=== PATIENT | male | born 1985 | race Caucasian/White ===

== ENCOUNTER 2017-02-03 03:58 | Emergency (ER) | payer OTHER, MEDICAID ==
--- NOTE | 2017-02-03 04:34 | ED Physician Chart ---
Chief Complaint/HPI - Patient Information Date Seen:: 02/03/17 Time Seen:: 04:00 Chief Complaint:: throat pain History of Present Illness:: 32-year-old male, otherwise healthy, complains of acute, worsening, constant, aching, 10 out of 10, nonradiating, burning, worse with swallowing, throat pain 5 days. Has associated muffled voice. Took some Motrin which helped the pain. Allergies:: Allergies Allergy/AdvReac Type Severity Reaction Status Date / Time No Known Allergies Allergy Verified 02/03/17 04:20 Review of Systems - Review of Systems Other: Complete system review otherwise unremarkable except as noted in history of present illness. Past Medical History - Past Medical History Past Medical History: No significant medical hx Family History: None Social History: Non Smoker, No Alcohol, No Drug Use, Employed Surgical History: None Psychiatricy History: None Medication: None Family Medical History - Family Member Mother Ethnicity: Living Status: Still Living Hx Family Cancer: No Hx Family Coronary Artery Disease: No Hx Family Congestive Heart Failure: No Hx Family Hypertension: No Physical Exam - Physical Examination Other:: INITIAL VITAL SIGNS: Reviewed by me GENERAL: Alert and interactive. No acute distress HEAD: Head is normocephalic and atraumatic EYES: EOMI. PERRL. No scleral icterus. No conjunctival injection ENT: Tonsils are +2 edematous with exudate. NECK: Supple. Bilateral cervical adenopathy greater on the right than left. Full range of motion RESPIRATORY: No tachypnea. Clear breath sounds bilaterally. No wheezing, rales, or rhonchi CV: Regular rate and rhythm. No murmurs, rubs, or gallops ABDOMEN: Soft, non-distended, non-tender. No guarding. No rebound. No masses. EXTREMITIES: No deformity. No cyanosis. No edema. SKIN: Warm and dry. No obvious rashes. NEUROLOGIC: Alert and oriented. Face is symmetric. Speech is normal. Moves all extremities equally. Motor and sensory distally intact. ED Septic Shock - . Is Septic Shock (SBP<90, OR Lactate>4 mmol\L) present?: No Reassessment (Disposition) - Reassessment Reassessment:: Blood pressure was noted to be elevated over 120/80. There were no signs of hypertension. Discussed the findings with the patient and recommended that the patient follow up with the primary care physician regarding the elevated blood pressure. Patient has acute throat pain due to tonsillitis. Treated definitively here in the ER. Gave Bicillin, Toradol, Decadron IM. Follow-up PCP 1-2 days. Gave prescription for ibuprofen. Return to ER precautions given. Patient understands and agrees with the plan. Reassessment Condition:: Improved - Diagnosis Diagnosis:: Acute throat pain due acute tonsillitis Elevated blood pressure without the diagnosis of hypertension - Aftercare/Follow up Instructions Aftercare/Follow-Up Instructions:: Counseled pt regarding lab results/diagnosis & need follow up, Refer to Discharge Instructions Medication Prescribed:: Ibuprofen - Patient Disposition Discharge/Transfer:: Home Time:: 04:44 Condition at Disposition:: Improved ED Discharge Plan - Patient Disposition Admit/Discharge/Transfer: Acute Care w/in this hosp Condition at Disposition: Improved Instructions: Tonsillitis, [id number] Forms: Work Release Form
[2017-02-03] MEDS ORDERED: Dexamethasone Sodium Phos 10 mg/mL PF Vial ONE (04:40)
[2017-02-03] MEDS: Dexamethasone Sodium Phos 4 mg/mL Vial IM STA (04:45)
== END 2017-02-03 05:00 | disposition home or self-care (01) ==
LOC: ER 03:58
DX: J03.90 Acute tonsillitis, unspecified (principal); R03.0 Elevated blood-pressure reading, without diagnosis of hypertension
CPT/HCPCS: J0561; J1885; Z7502

== ENCOUNTER 2017-03-04 16:27 | Inpatient (IN) | payer OTHER, MEDICAID ==
--- NOTE | 2017-03-04 16:48 | ED Physician Chart ---
Chief Complaint/HPI - Patient Information Date Seen:: 03/04/17 Time Seen:: 16:37 Chief Complaint:: FEVER History of Present Illness:: THIS IS A 32 YO MALE WHO STATES THAT OVER THE LAST TWO DAYS HE HAS GOTTEN SICK WITH FEVER. HE DENIES A SORE THROAT BUT HAS SOME CHEST CONGESTION. HE DENIES PAINFUL URINATION AND STATES THAT HE HAD SOME ABDOMINAL PAIN BUT STOPPED TODAY. Allergies:: Allergies Allergy/AdvReac Type Severity Reaction Status Date / Time No Known Allergies Allergy Verified 02/03/17 04:20 Vitals:: Vital Signs - 8 hr 03/04/17 16:34 Temp 103.0 F HR 131 RR 23 BP 117/70 O2 Sat % 96 Historian:: Patient Review:: Nurse's Note Reviewed Review of Systems - Review of Systems General/Constitutional: Fever, No chills, No weight loss, No weakness, No diaphoresis, No edema, No loss of appetite Skin: No skin lesions, No rash, No bruising Head: No headache, No light-headedness Eyes: No loss of vision, No pain, No diplopia ENT: No earache, No nasal drainage, Sore throat, No tinnitus Neck: No neck pain, No swelling, No thyromegaly, No stiffness, No mass noted Cardio Vascular: No chest pain, No palpitations, No PND, No orthopnea, No edema Pulmonary: No SOB, No cough, No sputum, No wheezing GI: No nausea, No vomiting, No diarrhea, Pain, No melena, No hematochezia, No constipation, No hematemesis G/U: No dysuria, No frequency, No hematuria Musculoskeletal: No bone or joint pain, No back pain, No muscle pain Endocrine: No polyuria, No polydipsia Psychiatric: No prior psych history, No depression, No anxiety, No suicidal ideation Hematopoietic: No bruising, No lymphadenopathy Allergic/Immuno: No urticaria, No angioedema Neurological: No syncope, No focal symptoms, No weakness, No paresthesia, No headache, No seizure, No dizziness, No confusion, No vertigo Past Medical History - Past Medical History Past Medical History: No significant medical hx Family History: None Social History: Non Smoker, No Alcohol, No Drug Use Surgical History: None Psychiatricy History: None Medication: Reviewed Family Medical History - Family Member Mother History Unknown: Yes Ethnicity: Living Status: Still Living Hx Family Cancer: No Hx Family Coronary Artery Disease: No Hx Family Congestive Heart Failure: No Hx Family Hypertension: No Physical Exam - Physical Examination General/Constitutional: Awake, Well-developed, well-nourished, Alert, No distress, GCS 15, Non-toxic appearing, Ambulatory Head: Atraumatic Eyes: Lids, conjuctiva normal, PERRL, EOMI Skin: Nl inspection, No rash, No skin lesions, No ecchymosis, Well hydrated, No lymphadenopathy ENMT: External ears, nose nl, Nasal exam nl, Lips, teeth, gums nl Neck: Nontender, Full ROM w/o pain, No JVD, No nuchal rigidity, No bruit, No mass, No stridor Respiratory: Nl effort/Exclusion, Clear to Auscultation, No Wheeze/Rhonchi/Rales Cardio Vascular: RRR, No murmur, gallop, rubs, NL S1 S2 GI: No tenderness/rebounding/guarding, No organomegaly, No hernia, Normal BS's, Nondistended, No mass/bruits, No McBurney tenderness : No CVA tenderness Extremities: No tenderness or effusion, Full ROM, normal strength in all extremities, No edema, Normal digits & nails Neuro/Psych: Alert/oriented, DTR's symmetric, Normal sensory exam, Normal motor strength, Judgement/insight normal, Mood normal, Normal gait, No focal deficits Misc: normal gait, Normal back, No paraspinal tenderness Labs/Radiology/EKG Results - Lab Results Results: Abnormal Lab Results 03/04/17 03/04/17 03/04/17 16:40 16:40 16:40 WBC 20.8 H* RBC 5.11 Hgb 15.3 Hct 44.5 MCV 87.0 MCH 30.0 MCHC Differential 34.5 RDW 12.4 Plt Count 105 L MPV 10.1 Band Neutrophils % 4 Neutrophils (Manual) 85 H Lymphocytes 8 L Monocytes 3 Platelet Estimate DECREASED PLATELETS Platelet Morphology NORMAL RBC Morph Micro Appear NORMAL PT 11.9 H INR 1.13 Sodium Potassium Chloride Carbon Dioxide Anion Gap BUN Creatinine Est GFR ( Amer) Est GFR (Non-Af Amer) BUN/Creatinine Ratio Glucose Calcium Total Bilirubin AST ALT Alkaline Phosphatase Troponin I Total Protein Albumin Globulin Albumin/Globulin Ratio Triglycerides 78 Cholesterol 133 LDL Cholesterol Direct 82 HDL Cholesterol 38 Urine Source Urine Color Urine Clarity Urine pH Ur Specific [place] Urine Protein Urine Glucose (UA) Urine Ketones Urine Blood Urine Nitrate Urine Bilirubin Urine Urobilinogen Ur Leukocyte Esterase Urine RBC Urine WBC Ur Epithelial Cells Urine Bacteria 03/04/17 03/04/17 03/04/17 16:40 16:40 17:00 WBC RBC Hgb Hct MCV MCH MCHC Differential RDW Plt Count MPV Band Neutrophils % Neutrophils (Manual) Lymphocytes Monocytes Platelet Estimate Platelet Morphology RBC Morph Micro Appear PT INR Sodium 132 L Potassium 3.3 L Chloride 100 Carbon Dioxide 26.1 Anion Gap 9.2 BUN 13 Creatinine 1.1 Est GFR ( Amer) > 60.0 Est GFR (Non-Af Amer) > 60.0 BUN/Creatinine Ratio 11.8 Glucose 114 H Calcium 9.3 Total Bilirubin 1.3 H AST 12 L ALT 17 Alkaline Phosphatase 90 Troponin I < 0.01 L Total Protein 7.4 Albumin 4.2 Globulin 3.2 Albumin/Globulin Ratio 1.3 Triglycerides Cholesterol LDL Cholesterol Direct HDL Cholesterol Urine Source CLEAN C Urine Color DARK YELLOW Urine Clarity SLIGHT HAZY Urine pH 6.0 Ur Specific [place] 1.010 Urine Protein 100 H Urine Glucose (UA) NEGATIVE Urine Ketones 15 H Urine Blood MODERATE H Urine Nitrate NEGATIVE Urine Bilirubin NEGATIVE Urine Urobilinogen 4.0 H Ur Leukocyte Esterase SMALL H Urine RBC 10-25 H Urine WBC 25-50 H Ur Epithelial Cells FEW Urine Bacteria 1+ H - Radiology Results Results: chest x-ray = cm Assessment - Assessment General Assessment: THE PATIENT RESPONSE TO THE TYLENOL WAS GOOD AND THE TEMP CAME DOWN. THE LAB RESULTS ALL POINTS TO PYELONEPHRITIS. THE PATIENT WAS CULTURED AND TREATED WITH FLUIDS, ANTIBIOTICS WITH THE URINE SENT TO BE CULTURED. ED Septic Shock - . Is Septic Shock (SBP<90, OR Lactate>4 mmol\L) present?: No - <6hrs of presentation: Vital Signs: Vital Signs - 8 hr 03/04/17 16:34 Temp 103.0 F HR 131 RR 23 BP 117/70 O2 Sat % 96 Reassessment (Disposition) - Reassessment Reassessment Condition:: Improved - Diagnosis Diagnosis:: ACUTE PYLONEPRITIS FEVER - Patient Disposition Discharge/Transfer:: Acute Care w/in this hosp Admitting Medical Physician:: Genaro Dooley Condition at Disposition:: Improved ED Discharge Plan - Patient Disposition Admit/Discharge/Transfer: Acute Care w/in this hosp Condition at Disposition: Improved
[2017-03-04 17:09] LABS: HEMATOCRIT 44.5 % (39.0-49.0); HEMOGLOBIN 15.3 gm/dL (13.2-17.3); MEAN CORPUSCULAR HGB CONC 34.5 pg (28.0-36.0); MEAN PLATELET VOLUME 10.1 fl; PLATELET COUNT 105 Th/cmm (150-400); RED BLOOD COUNT 5.11 Mil/cmm (4.30-5.70); RED CELL DISTRIBUTION WIDTH 12.4 % (11.5-20.0)
[2017-03-04 17:20] LABS: ALB/GLOB RATIO 1.3 (1.0-1.8); ALKALINE PHOSPHATASE 90 U/L (34-104); ANION GAP 9.2 (7.0-16.0); BILIRUBIN,TOTAL 1.3 mg/dL (0.3-1.0); BUN - UREA NITROGEN 13 mg/dL (7-25); BUN/CREATININE RATIO 11.8; CALCIUM SERUM 9.3 mg/dL (8.6-10.3); CARBON DIOXIDE 26.1 mEq/L (21.0-31.0); CHLORIDE 100 mEq/L (98-107); CHOLESTEROL 133 mg/dL (<200); CREATININE - SERUM 1.1 mg/dL (0.7-1.3); GLUCOSE 114 mg/dL (70-105); POTASSIUM SERUM 3.3 mEq/L (3.5-5.1); SGOT 12 U/L (13-39); SGPT/ALT 17 U/L (7-52); SODIUM SERUM 132 mEq/L (136-145); TRIGLYCERIDES 78 mg/dL (<150)
[2017-03-04 17:23] LABS: WHITE BLOOD COUNT 20.8 Th/cmm (4.8-10.8)
[2017-03-04 17:26] LABS: BAND NEUTROPHILE 4 % (0-10); NEUTROPHILS 85 % (40-80); PLATELET ESTIMATE DECREASED PLATELETS (NORMAL); PLATELET MORPHOLOGY NORMAL (NORMAL); TOTAL CELLS COUNTED 100
[2017-03-04 17:27] LABS: INR 1.13 (0.5-1.4); PROTHROMBIN TIME (TEST) 11.9 SECONDS (9.5-11.5)
[2017-03-04] MEDS ORDERED: Potassium Chloride 20 mEq ER Tab PO ONE ×2 (17:27→17:30)
[2017-03-04] MEDS ORDERED: Sodium Chloride 0.9% 1,000 ML IV ONE (17:27)
[2017-03-04 17:36] LABS: URINE BILIRUBIN NEGATIVE (NEGATIVE); URINE COLOR DARK YELLOW; URINE GLUCOSE (UA) NEGATIVE (NEGATIVE); URINE KETONE 15 mg/dL (NEGATIVE)
[2017-03-04 17:37] LABS: URINE BACTERIA 1+ /hpf (NONE SEEN); URINE BLOOD MODERATE (NEGATIVE); URINE EPITHELIAL CELLS FEW /lpf (FEW); URINE PROTEIN 100 mg/dL (NEGATIVE)
[2017-03-04 17:38] LABS: URINE WBC 25-50 /hpf (0-5)
[2017-03-04] MEDS ORDERED: IOHEXOL 300MG/ML 100 ML VIAL ONE (18:04)
[2017-03-04] MEDS ORDERED: Amikacin 250 mg/mL 2mL Vial IV ONE (21:43)
[2017-03-04] MEDS: D5-0.45NS 1,000 ML IV SCH (21:51)
--- NOTE | 2017-03-05 05:24 | Admit Criteria Form ---
Admit Criteria Forms - Admit Criteria Diagnosis: PYELONEPHRITIS, ACUTE Clinical Indications for Admission to Inpatient Care (Place 'X' for any and all applicable criteria): Admission is indicated for ANY ONE of the following 1,2,3,4,5 [ ]I. Outpatient treatment has failed or is not feasible (eg, multidrug- resistant organism).5 [ ]II. beyond 24 weeks' gestation6 [ ]III. Hemodynamic instability [ ]IV. Immunocompromised state (eg, AIDS, diabetes, sickle cell disease) [ ]V. Known renal or urologic abnormalities (eg, indwelling catheter, structural abnormalities, renal calculi, urinary stent, previous urologic surgery) [ ]. Condition that requires drainage procedure, including ANY ONE of the following: [ ]a) Urinary obstruction [ ]b) Pyelitis [ ]c) Pyonephrosis [ ]d) Renal or perinephric abscess [ ]e) Emphysematous pyelonephritis 7 [X ]VII. Inpatient admission required rather than observation care (Also use Pyelonephritis, Acute: Observation Care Criteria as appropriate) because of ANY ONE of the following: [ ]a) High fever or infection requiring inpatient admission as indicated by ANY ONE of ,12 [ ]A. Documented bacteremia [ ]B. Temp>104.9 tobwnbs3T (oral) [ ]C. Temp>103.10F (oral) or <96.80F (rectal) that does not respond to all emergency treatment [ ]b) Acute renal failure [ ]c) Other significant finding or clinical condition judged not to be within the scope of observation care [ ]d) IV fluid to replace significant ongoing (eg, for over 24hrs) losses (> 3 L/m2 per day) [X ]e) Other condition,treatment or monitoring requiring inpatient admission The original [facility] content created by [employer] has been revised. The portions of the content which have been revised are identified through the use of italic text or in bold, and [facility] has neither reviewed nor approved the modified material. All other unmodified content is copyright [facility]. Please see references footnoted in the original [facility] [employer] edition 2016 Admit Criteria Met?: Yes
[2017-03-05 05:38] LABS: HEMATOCRIT 42.7 % (39.0-49.0); HEMOGLOBIN 14.7 gm/dL (13.2-17.3); MEAN CELL VOLUME 86.6 fl (80-99); MEAN CORPUSCULAR HEMOGLOBIN 29.9 pg (26.0-30.0); MEAN CORPUSCULAR HGB CONC 34.5 pg (28.0-36.0); MEAN PLATELET VOLUME 11.2 fl; PLATELET COUNT 111 Th/cmm (150-400); RED BLOOD COUNT 4.93 Mil/cmm (4.30-5.70); RED CELL DISTRIBUTION WIDTH 12.7 % (11.5-20.0)
[2017-03-05 05:53] LABS: ALB/GLOB RATIO 1.3 (1.0-1.8); ALKALINE PHOSPHATASE 81 U/L (34-104); ANION GAP 11.4 (7.0-16.0); BILIRUBIN,TOTAL 1.2 mg/dL (0.3-1.0); BUN - UREA NITROGEN 12 mg/dL (7-25); BUN/CREATININE RATIO 13.3; CARBON DIOXIDE 26.8 mEq/L (21.0-31.0); CHLORIDE 102 mEq/L (98-107); CREATININE - SERUM 0.9 mg/dL (0.7-1.3); GLUCOSE 126 mg/dL (70-105); POTASSIUM SERUM 3.2 mEq/L (3.5-5.1); SGOT 10 U/L (13-39); SGPT/ALT 15 U/L (7-52); SODIUM SERUM 137 mEq/L (136-145)
[2017-03-05 05:56] LABS: WHITE BLOOD COUNT 21.4 Th/cmm (4.8-10.8)
[2017-03-05 07:55] LABS: BAND NEUTROPHILE 6 % (0-10); NEUTROPHILS 80 % (40-80); PLATELET ESTIMATE DECREASED PLATELETS (NORMAL); PLATELET MORPHOLOGY NORMAL (NORMAL); TOTAL CELLS COUNTED 100
[2017-03-05] MEDS: Hydrocodone/APAP 5mg/325mg Tab PO PRN (08:10)
[2017-03-05] MEDS ORDERED: Potassium Chloride 20 mEq ER Tab PO ONE (08:22)
[2017-03-05] MEDS ORDERED: Amikacin 1000 mg in D5W 100 mL IV SCH (09:00)
--- NOTE | 2017-03-05 10:02 | Diagnostic Imaging Report ---
CHEST X-RAY: AP view INDICATION: Cough COMPARISON: None FINDINGS: Mild increased interstitial lung markings are noted. No focal consolidation or effusions. Heart size is borderline prominent and is accentuated by patient suboptimal lung volumes. The osseous structures are intact. IMPRESSION: Mild increased interstitial lung markings. No focal consolidation identified.
--- NOTE | 2017-03-05 10:24 | Diagnostic Imaging Report ---
CT abdomen and pelvis with intravenous contrast Indication: Abdominal pain Comparison: None, Technique: Axial images were obtained from the lung bases to the bilateral proximal femurs with IV contrast. Coronal reconstructions were made. total DLP: 1108, [id number] FINDINGS: Hypoventilatory atelectatic changes of the lung bases are noted. There is fatty infiltration of the liver. No evidence of focal hepatic, splenic, or pancreatic lesions. No focal adrenal lesions. No evidence of hydronephrosis or focal renal lesions. Distended urinary bladder is noted. Borderline prominent prostate gland is noted. Fluid-filled loops of small bowel are noted, nonspecific. No evidence of acute appendicitis. High density possibly oral contrast other ingested material is seen within the stomach. No evidence of free fluid or free air. Transitional vertebral body anatomy is noted. IMPRESSION: No evidence of acute appendicitis Fluid-filled loops of small bowel, Nonspecific and may be due to infectious/inflammatory process Hepatic steatosis. Borderline prominent prostate gland please correlate with clinical findings.
--- NOTE | 2017-03-05 11:06 | History & Physical ---
ADMIT DATE: 03/05/2017 CHIEF COMPLAINT: High-grade fever. HISTORY OF PRESENT ILLNESS: A 32-year-old [place]ian male with no significant past medical history, presented to Emergency Room for evaluation of cough and congestion with high grade fever. The patient was also complaining of some lower abdominal pain. Workup done in the Emergency Room remarkable for leukocytosis and urinary tract infection. The patient has not been admitted. PAST MEDICAL HISTORY: None. MEDICATIONS AT HOME: [id number] Advil, Nyquil, and Motrin. ALLERGIES: The patient is not allergic to any medication. SOCIAL HISTORY: The patient lives by himself. The patient does not smoke, does not drink. FAMILY MEDICAL HISTORY: Negative for diabetes. REVIEW OF SYSTEMS: The patient denies any headache, blurred vision, double vision, dysphagia, odynophagia, runny nose, stuffy nose. No history of any chest pain. No history of any shortness of breath, no history of any abdominal pain. No history of any hematemesis, hematuria, hematochezia, or melena. No seizure or syncopal episode. PHYSICAL EXAMINATION: GENERAL: Alert, awake, oriented, lying in the bed without any acute distress. VITAL SIGNS: T-max of 103.1, pulse is 100, respiratory rate is 18, blood pressure 130/70. SKIN: Warm to touch. HEENT: Normocephalic, atraumatic. Extraocular muscles are intact. Tongue was pink and coated. Poor dentition noted. No oral lesion. No exudate. No sinus tenderness. NECK: Supple. No JVD, no hepatojugular reflux. No lymphadenopathy, thyromegaly, or carotid bruit. HEART: Both heart sounds are regular. No S3, melanie S4, no murmur. CHEST: Lung equal in expansion. No wheezing, no crackles. ABDOMEN: Soft. Suprapubic tenderness noted. Bowel sounds are present. No palpable mass. EXTREMITIES: No edema, no cyanosis, no clubbing. Peripheral pulses are +2. No calf tenderness noted. NEUROLOGIC: Nonfocal. AVAILABLE DIAGNOSTIC DATA: Has been reviewed. CLINICAL IMPRESSION: 1. High grade fever with leukocytosis with lower abdominal pain. Urine examination is consistent with urinary tract infection, suspect the patient has a complicated urinary tract infection, though the patient has ongoing pain, cannot rule out diverticulitis. 2. Hypokalemia. 3. Hyperglycemia. PLAN: 1. Admit this patient to Med-Surg floor. 2. IV fluid. 3. IV antibiotic. 4. Blood cultures and urine cultures have been done in the ER, will wait for the report. 5. Infectious Disease consult. 6. Replace potassium. 7. Glycohemoglobin A1c. 8. Symptoms management. 9. Follow up labs. 10. Follow consult recommendation. 11. Care plan reviewed and discussed. JOB# [id number]
--- NOTE | 2017-03-05 12:09 | Consultation ---
Consult Note - Consult Note Service Date: 03/05/17 Consult Note: PHYSICIAN Consultation Note: Date of Admission: 03/04/17 Purpose of Consultation: Chief Complaint: Patient JAGUAR REY was admitted to [facility] emergency [facility] with FEVER. History of Present Illness: 32 Yr MALE developed fever for last two days. It was associated with dysuria and chills. He had also complained for lower abdominal pain. He complained of constipation, new to him. On initial evaluation, his temperature was 103 degree F and WBC Count was 20,800. UA showed Pyuria and bacteriurea. Antibioticwise, Amikacin and Rocephin were started. Past Medical History: Allergies Allergy/AdvReac Type Severity Reaction Status Date / Time No Known Allergies Allergy Verified 02/03/17 04:20 Vital Signs Temp 97.9 F 03/05/17 04:00 Pulse 94 03/05/17 04:00 Resp 18 03/05/17 08:00 BP 118/74 03/05/17 04:00 Pulse Ox 97 03/05/17 04:00 Intake & Output 03/04/17 03/05/17 03/05/17 18:59 06:59 18:59 Intake Total 391 200 Balance 391 200 Intake: Intake, IV Amount 151 Amikacin 250 mg In 101 Dextrose 5% 100 ml @ 100 mls/hr IV Q12H NAEL Rx#: [id number] cefTRIAXone 1 gm In 50 Dextrose 5% 50 ml @ 100 mls/hr IV Q24H NAEL Rx#: [id number] Oral 240 200 Other: # Bowel Movements 0 1 Laboratory Results - last 24 hr 03/05/17 03/05/17 03/05/17 04:45 04:45 04:45 WBC 21.4 H* RBC 4.93 Hgb 14.7 Hct 42.7 MCV 86.6 MCH 29.9 MCHC Differential 34.5 RDW 12.7 Plt Count 111 L MPV 11.2 Band Neutrophils % 6 Neutrophils (Manual) 80 Lymphocytes 11 L Monocytes 3 Platelet Estimate DECREASED PLATELETS Platelet Morphology NORMAL RBC Morph Micro Appear NORMAL Sodium 137 Potassium 3.2 L Chloride 102 Carbon Dioxide 26.8 Anion Gap 11.4 BUN 12 Creatinine 0.9 Est GFR ( Amer) > 60.0 Est GFR (Non-Af Amer) > 60.0 BUN/Creatinine Ratio 13.3 Glucose 126 H Hemoglobin A1c % Calcium 9.0 Magnesium 2.2 Total Bilirubin 1.2 H AST 10 L ALT 15 Alkaline Phosphatase 81 Total Protein 6.9 Albumin 3.9 L Globulin 3.0 Albumin/Globulin Ratio 1.3 03/05/17 04:45 WBC RBC Hgb Hct MCV MCH MCHC Differential RDW Plt Count MPV Band Neutrophils % Neutrophils (Manual) Lymphocytes Monocytes Platelet Estimate Platelet Morphology RBC Morph Micro Appear Sodium Potassium Chloride Carbon Dioxide Anion Gap BUN Creatinine Est GFR ( Amer) Est GFR (Non-Af Amer) BUN/Creatinine Ratio Glucose Hemoglobin A1c % 5.5 Calcium Magnesium Total Bilirubin AST ALT Alkaline Phosphatase Total Protein Albumin Globulin Albumin/Globulin Ratio Home Medication Medication Instructions Recorded Type Aspirin 325 mg PO PRN PRN 03/04/17 History Dayquil 1 tsp PO PRN PRN 03/04/17 History Nyquil 1 tsp PO PRN PRN 03/04/17 History Current Medications Generic Name Dose Route Start Last Admin Trade Name Freq PRN Reason Stop Dose Admin Acetaminophen 650 mg 03/04/17 20:51 03/05/17 01:29 Tylenol PO 05/03/17 20:50 650 mg Q6H PRN Administration Mild Pain/Headache/T above 101 Acetaminophen/Hydrocodone Bitart 1 tab 03/04/17 20:51 03/05/17 08:10 [place] 5mg/325mg PO 05/03/17 20:50 1 tab Q6H PRN Administration Moderate Pain Dextrose/Sodium Chloride 1,000 mls @ 100 mls/hr 03/04/17 21:00 03/04/17 21:51 D5-0.45ns IV 05/03/17 20:59 100 mls/hr .Q10H NAEL Administration Ceftriaxone Sodium 1 gm/ 50 mls @ 100 mls/hr 03/04/17 21:00 03/04/17 22:22 Dextrose IV 05/03/17 20:59 Infused Q24H NAEL Infusion Amikacin Sulfate 700 mg/ 102.8 mls @ 100 mls/hr 03/05/17 09:00 03/05/17 09:17 Dextrose IV 05/04/17 08:59 100 mls/hr Q8H ANEL Administration Ondansetron HCl 4 mg 03/04/17 20:51 Zofran IVP 05/03/17 20:50 Q6H PRN Nausea / Vomiting Temazepam 15 mg 03/04/17 20:51 Restoril PO 05/03/17 20:50 HS PRN Insomnia Protocol Review of Systems: A 12 point ROS was reviewed with the pertinent positive and negatives noted in the HPI. Social History Lives at home, Denies any drug of alcohol use. Smoking Status Never smoker. Margi Family Medical History Family Medical History Start: 03/04/17 20: 39 Freq: ONCE Status: Active Family Medical History Mother History Unknown Yes Physical Exam: General: HEENT: EYES: EOMI Bilaterally, PERRLA Bilaterally, Head is normocephalic, atraumatic on inspection. Oral cavity is moist and pink tongue. Cardio: +S1/S2 Auscultated, RRR, no murmurs/rubs/gallops noted Respiratory: Clear to Auscultate Bilaterally, vesicular breath sounds. Abdominal: Soft, Nondistended, Nontender to palpation x 4 quadrants Extremities: No Edema noted in the lower extremities Neurological: Alert and Oriented x3, No Acute Distress. Cranial Nerves II-XII intact bilaterally, Gait Steady, No Focal Deficits noted. IMPRESSION: 1. sepsis. 2. URI and prostatitis. Pyelonephritis. 3. Constipation. 4. Dyuria. RECOMMENDATIONS: DC amilakacin and start levaquin. Continue rocephin. start pyridium and colace. Signed, Eldon Jorge M.D. [id number]
[2017-03-05] MEDS: D5-0.45NS 1,000 ML IV SCH (14:28)
[2017-03-05] MEDS: Levofloxacin 750mg/150mL 750 MG/150 ML BAG IV SCH (14:31)
[2017-03-05] MEDS ORDERED: Lactulose 10 Gm/15 mL 30mL UDC PO PRN (16:22)
[2017-03-06] MEDS: Hydrocodone/APAP 5mg/325mg Tab PO PRN ×3 (03:11→15:51)
[2017-03-06] MEDS: D5-0.45NS 1,000 ML IV SCH ×2 (03:15→13:27)
[2017-03-06 05:21] LABS: % BASOPHILS 0.3 % (0.0-2.0); % EOSINOPHILS 0.8 % (0.0-5.0); % LYMPHOCYTES 13.7 % (20.0-50.0); % MONOCYTES 6.7 % (2.0-10.0); % NEUTROPHILS 78.5 % (40.0-80.0); HEMATOCRIT 44.7 % (39.0-49.0); HEMOGLOBIN 14.9 gm/dL (13.2-17.3); MEAN CORPUSCULAR HEMOGLOBIN 29.4 pg (26.0-30.0); MEAN CORPUSCULAR HGB CONC 33.4 pg (28.0-36.0); MEAN PLATELET VOLUME 10.1 fl; NEUTROPHILE ABSOLUTE 11.2 Th/cmm (1.8-8.0); PLATELET COUNT 123 Th/cmm (150-400); RED BLOOD COUNT 5.08 Mil/cmm (4.30-5.70); RED CELL DISTRIBUTION WIDTH 12.7 % (11.5-20.0)
[2017-03-06 05:28] LABS: WHITE BLOOD COUNT 14.2 Th/cmm (4.8-10.8)
[2017-03-06 05:55] LABS: ALB/GLOB RATIO 1.2 (1.0-1.8); ALKALINE PHOSPHATASE 79 U/L (34-104); ANION GAP 8.4 (7.0-16.0); BILIRUBIN,TOTAL 0.5 mg/dL (0.3-1.0); BUN - UREA NITROGEN 11 mg/dL (7-25); BUN/CREATININE RATIO 13.8; CALCIUM SERUM 9.4 mg/dL (8.6-10.3); CHLORIDE 107 mEq/L (98-107); CREATININE - SERUM 0.8 mg/dL (0.7-1.3); GLUCOSE 126 mg/dL (70-105); POTASSIUM SERUM 3.4 mEq/L (3.5-5.1); SGOT 12 U/L (13-39); SGPT/ALT 17 U/L (7-52); SODIUM SERUM 136 mEq/L (136-145)
[2017-03-06] MEDS ORDERED: Potassium Chloride 20 mEq ER Tab PO ONE (08:43)
[2017-03-06] MEDS: Levofloxacin 750mg/150mL 750 MG/150 ML BAG IV SCH (13:26)
--- NOTE | 2017-03-07 01:05 | Discharge Summary ---
DATE OF DISCHARGE: 03/06/2017 PRINCIPAL DIAGNOSES: 1. Complicated infection and pyelonephritis. 2. Acute viral upper respiratory infection. 3. Sepsis, resolved. 4. Leukocytosis secondary to infectious etiology. 5. Hypokalemia, status post replacement. 6. Thrombocytopenia, most likely ____ etiology, improving at the time of discharge to 123 From 105. BRIEF STATEMENT FOR THE REASON FOR ADMISSION: A 32-year-old male with no significant past medical history, presented to Emergency Room for evaluation of high-grade fever, cough, congestion and dysuria and abdominal discomfort. The patient was admitted after being evaluated; please refer to my dictated medical H and P. HOSPITAL COURSE: The patient was admitted to med/surg floor. The patient was given IV fluid, IV antibiotic. Blood cultures and urine cultures were done. Infectious Disease consultation was requested. The patient had hypokalemia, which was corrected. The patient was seen by Infectious Disease, diagnosis of sepsis prostate titers pyelonephritis and URI were made. The patient's antibiotic was adjusted. The patient started to improve with the treatment, followed by myself and bus info consultant. The patient wanted to go home and blood cultures were negative. Urine cultures did reveal gram-negative rods of 70,000 colonies. The patient responded fairly well, so decision was made that the patient will be placed on p.o. Bactrim DS 1 twice a day for 2 weeks. The patient is to continue Pyridium for 2 more days and advised to see her primary care physician in his office in 1 week. If recurrent symptoms, the patient was advised to go to Emergency Room. [facility]# [id number]
== END 2017-03-06 17:05 | disposition home or self-care (01) | DRG 872 ==
LOC: ER 16:27 → MSI 19:55
PROVIDERS: ADMIT Internal Medicine; ATTEND Internal Medicine
DX: A41.9 Sepsis, unspecified organism (principal); D69.6 Thrombocytopenia, unspecified; N12 Tubulo-interstitial nephritis, not specified as acute or chronic; R73.9 Hyperglycemia, unspecified; K59.00 Constipation, unspecified; E87.6 Hypokalemia; F17.210 Nicotine dependence, cigarettes, uncomplicated; J06.9 Acute upper respiratory infection, unspecified; Z79.82 Long term (current) use of aspirin
CPT/HCPCS: 36415-UA; 71010-TC; 80053-TC; 80061-TC; 81001-TC; 83036-90; 83735-TC; 84153-90; 84443-TC; 84484-TC; 85007-TC; 85025-TC; 85027-TC; 85610-TC; 86592-TC; 87086-90; 96374; J0278; J0696; J1885; J1956; J2001; J7030; Q9967; Z7610